=== PATIENT | female | born 1945 | race Caucasian/White ===

== ENCOUNTER 2019-02-13 15:38 | Emergency (ER) | payer MEDICARE, OTHER ==
--- NOTE | 2019-02-13 15:46 | ER Document Report ---
ED Medical Screen (RME) - General Stated Complaint: JAW PAIN/RIGHT ARM PAIN Time Seen by Provider: 02/13/19 15:40 Mode of Arrival: Ambulatory Information source: Patient - HPI Patient complains to provider of: JAW PAIN, RIGHT ARM PAIN Notes: 02/13/19 15:41 RIGHT ARM PAIN FOR MONTHS. LEFT JAW PAIN SINCE YESTERDAY. NO CP/SOB. NO N/T, NO WEAKNESS. NO FEVER. EXAM: TENDERNESS TO PALPATION OF THE LEFT JAW AND PAIN WITH OPENING. NO DISTRESS. PLAN: EKG 02/13/19 16:13 An initial examination was made on the patient as part of the triage process, and it was determined a more comprehensive evaluation was necessary. Initial labs were ordered and patient was transferred to another provider in the ED who assumed care and finished evaluation and plan. Physical Exam - Vital signs Vitals: Temp Pulse Resp BP Pulse Ox 98.1 F 64 14 135/74 H 99 02/13/19 16:00 02/13/19 16:00 02/13/19 16:00 02/13/19 16:00 02/13/19 16:00 Course - Vital Signs Vital signs: Temp Pulse Resp BP Pulse Ox 98.1 F 64 14 135/74 H 99 02/13/19 16:00 02/13/19 16:00 02/13/19 16:00 02/13/19 16:00 02/13/19 16:00
--- NOTE | 2019-02-13 16:36 | ER Document Report ---
ED General - General Chief Complaint: Jaw Pain Stated Complaint: JAW PAIN/RIGHT ARM PAIN Time Seen by Provider: 02/13/19 15:40 Mode of Arrival: Ambulatory TRAVEL OUTSIDE OF THE [place] IN LAST 30 DAYS: No - HPI Patient complains to provider of: Left jaw pain, right arm pain Onset: Other - Started yesterday Onset/Duration: Sudden Quality of pain: Sharp Severity: Mild Pain Level: 1 Associated symptoms: None Exacerbated by: Denies Relieved by: Denies Similar symptoms previously: No Recently seen / treated by doctor: No Notes: Patient is a very healthy 73-year-old female coming in today for chief complaint left-sided jaw pain and right arm pain. Patient bit down on a breakfast biscuit yesterday and felt a sharp pain in her left jaw. She told some family members that she had that pain in her jaw and also was having pain in her right arm and they told her that they were concerned about her heart and told her to get it checked out. Her primary care doctor was unable to get around but told her to come over here right away. Patient does not have any chest pain or shortness of breath. Her jaw pain does seem to have come about from biting down on something. The right arm pain apparently has been going on for weeks to months and has been evaluated by doctors in the past. Patient rel ates a shooting pain down her arm and hypersensitivity in her pinky finger. She has no redness swelling or history of trauma to the arm. She has full range of motion. Patient does not have hypertension, cholesterol issues, diabetes, recent smoking history, or family history for heart disease. - Related Data Allergies/Adverse Reactions: levofloxacin [From Levaquin] Allergy (Verified 02/13/19 16:36) Past Medical History - General Information source: Patient - Social History Smoking Status: Former Smoker Family History: Reviewed & Not Pertinent Review of Systems - Review of Systems Notes: Constitutional: No fevers. No chills. EENT: No eye redness. No eye pain. No ear pain. No sore throat. Positive left jaw pain Cardiovascular: No chest pain. No palpitations. Respiratory: No cough. No shortness of breath. No respiratory distress. Gastrointestinal: No abdominal pain. No nausea, vomiting, or diarrhea. Genitourinary: Atraumatic. No lesions. No pain. No discharge. Musculoskeletal: Atraumatic. No swelling. No deformities. Positive chronic right arm pain Skin: No rash or lesions. Lymphatic: No swollen lymph nodes. Neurologic: No headache. No syncope. Psychiatric: No suicidal or homicidal ideation. Physical Exam - Vital signs Vitals: Temp Pulse Resp BP Pulse Ox 98.1 F 64 14 135/74 H 99 02/13/19 16:00 02/13/19 16:00 02/13/19 16:00 02/13/19 16:00 02/13/19 16:00 - Notes Notes: General: Well-developed, well-nourished. In no acute distress. Non-toxic appearing. Cardiac: Well-perfused. Regular rate and rhythm. No murmurs, rubs, or gallops. Pulmonary: No respiratory distress. No cyanosis. Bilateral lung rust are clear to auscultation. Abdominal: Non-distended. Non-rigid. Bowels sounds are present in all four quadrants. No guarding or rebound. HEENT: Head is atraumatic. Conjunctivae not reddened. No tearing. PERRL. EOMI. Orbits atraumatic. No periorbital swelling or erythema. Oropharynx is without erythema, swelling, or exudates. Neck: Supple. No adenopathy. No meningismus. Dermatologic: Warm with good turgor. No rash. Atraumatic. Chest: Atraumatic. No chest wall tenderness to palpation. Musculoskeletal: Moves all extremities well. No range of motion deficits. no muscular or joint tenderness. No paraspinal muscle tenderness. no midline spinal tenderness or step-off. Genitourinary: Examination deferred Neurologic: No gross neurologic deficits. Psychiatric: Normal mood. Course - Re-evaluation Re-evalutation: 02/13/19 16:33 HEART SCORE 2. Patient has no risk factors nor physical findings for PE. Most likely this is to isolated things. 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 The left jaw does not show any signs of pathology except may be some TMJ this develop. I will get baseline troponin and a chest x-ray. EKG is Jus been done and normal. I have very very low suspicion for cardiac etiology. 02/13/19 17:48 As expected negative troponin and negative chest x-ray. I will have the patient treat the pain in her jaw symptomatically with Tylenol. She can follow-up with a dentist to get that checked. - Vital Signs Vital signs: Temp Pulse Resp BP Pulse Ox 98.1 F 64 14 135/74 H 99 02/13/19 16:00 02/13/19 16:00 02/13/19 16:00 02/13/19 16:00 02/13/19 16:00 - EKG Interpretation by Me EKG shows normal: Sinus rhythm, [place], Intervals, QRS Complexes, ST-T Waves Discharge - Discharge Clinical Impression: Chronic pain of right upper extremity Sprain of jaw, left side, initial encounter Qualifiers: Encounter type: initial encounter Qualified Code(s): S03.42XA - Sprain of jaw, left side, initial encounter Condition: Good Disposition: HOME, SELF-CARE Instructions: Temporomandibular Joint Syndrome ([facility]) Additional Instructions: Treat the pain in your jaw with Tylenol. You can follow-up with your dentist if the pain persists. You can also see your doctor or neurologist to investigate the chronic pain in the right arm. Your lab work and everything here is not suggestive of a cardiac problem for your pain. If you start to have issues with chest pain or want to have further workup for your heart, you can see your primary care doctor and be referred to cardiology. Referrals: PRIMARY CARE DOCTOR, YOUR [Other] - Follow up as needed
--- NOTE | 2019-02-13 17:04 | RADIOLOGY REPORT (SQ) ---
EXAM DESCRIPTION: CHEST SINGLE VIEW COMPLETED DATE/TIME: 02/13/2019 4:55 pm REASON FOR STUDY: jaw pain, right arm pain COMPARISON: None. EXAM PARAMETERS: NUMBER OF VIEWS: One view. TECHNIQUE: Single frontal radiographic view of the chest acquired. RADIATION DOSE: NA LIMITATIONS: None. FINDINGS: LUNGS AND PLEURA: No opacities, masses or pneumothorax. No pleural effusion. Likely emphy sematous change. MEDIASTINUM AND HILAR STRUCTURES: No masses. Contour normal. HEART AND VASCULAR STRUCTURES: Heart normal in size. Normal vasculature. BONES: No acute findings. HARDWARE: None in the chest. OTHER: No other significant finding. IMPRESSION: No evidence of acute cardiopulmonary process. TECHNICAL DOCUMENTATION: JOB ID: [id number] [employer]- All Rights Reserved Reading location - IP/workstation name: [email or web address]
[2019-02-13 17:58] VITALS: BP 131/89
--- NOTE | 2019-02-13 20:03 | EKG REPORT ---
SEVERITY:- ABNORMAL ECG - SINUS RHYTHM MULTIPLE ATRIAL PREMATURE COMPLEXES BORDERLINE T ABNORMALITIES, ANT-LAT LEADS : Confirmed by: Iveth Ferrari MD 13-Feb-2019 20:02:28
== END 2019-02-13 17:58 | disposition home or self-care (01) ==
LOC: ER 15:38
DX: S03.42XA Sprain of jaw, left side, initial encounter (principal); R68.84 Jaw pain; M79.601 Pain in right arm; G89.29 Other chronic pain; X58.XXXA Exposure to other specified factors, initial encounter; Z87.891 Personal history of nicotine dependence
CPT/HCPCS: 36415; 71045; 84484; 93005; 93010; 99284

== ENCOUNTER 2019-03-09 01:17 | Emergency (ER) | payer MEDICARE, OTHER ==
--- NOTE | 2019-03-09 04:54 | ER Document Report ---
ED GI/ - General Chief Complaint: Urinary Frequency Stated Complaint: URINARY PROBLEM Time Seen by Provider: 03/09/19 04:44 Primary Care Provider: LUANN WEISS MD [Primary Care Provider] - Follow up as needed Notes: Patient is a 73-year-old female that comes to the emergency department for chief complaint of frequency of urination, burning with urination. Symptoms started tonight. She took Azo prior to arrival. She denies abdominal pain, vomiting, flank pain, fever/chills. She states she has had bladder infections in the past and this feels the same. Past medical history includes hysterectomy, orthopedic surgery, she denies medical history otherwise. She lives at home, drove herself here. TRAVEL OUTSIDE OF THE [place] IN LAST 30 DAYS: No - Related Data Allergies/Adverse Reactions: levofloxacin [From Levaquin] Allergy (Verified 02/13/19 16:36) Past Medical History - General Information source: Patient - Social History Smoking Status: Former Smoker Frequency of alcohol use: None Drug Abuse: None Lives with: Family Family History: Reviewed & Not Pertinent Patient has suicidal ideation: No Patient has homicidal ideation: No Renal/ Medical History: Denies: Hx Peritoneal Dialysis Past Surgical History: Reports: Hx Gynecologic Surgery, Hx Hysterectomy, Hx Orthopedic Surgery - Lt wrist; Lt knee - Immunizations Immunizations up to date: Yes Hx Diphtheria, Pertussis, Tetanus Vaccination: Yes Review of Systems - Review of Systems Constitutional: No symptoms reported EENT: No symptoms reported Cardiovascular: No symptoms reported Respiratory: No symptoms reported Gastrointestinal: No symptoms reported Genitourinary: See HPI Female Genitourinary: No symptoms reported Musculoskeletal: No symptoms reported Skin: No symptoms reported Hematologic/Lymphatic: No symptoms reported Neurological/Psychological: No symptoms reported Physical Exam - Vital signs Vitals: Temp Pulse Resp BP Pulse Ox 97.6 F 50 L 17 138/62 H 97 03/09/19 02:25 03/09/19 02:25 03/09/19 02:25 03/09/19 02:25 03/09/19 02:25 - Notes Notes: GENERAL: Alert, interacts well. No acute distress. HEAD: Normocephalic, atraumatic. EYES: Pupils equal, round, and reactive to light. Extraocular movements intact. ENT: Oral mucosa moist, tongue midline. Oropharynx unremarkable. Airway patent. NECK: Full range of motion. Supple. Trachea midline. LUNGS: Clear to auscultation bilaterally, no wheezes, rales, or rhonchi. No respiratory distress. HEART: Bradycardia but normal rhythm. No murmur ABDOMEN: Soft, non-tender. Non-distended. Bowel sounds present in all 4 quadrants. GENITOURINARY: Deferred EXTREMITIES: Moves all 4 extremities spontaneously. No edema, normal radial and dorsalis pedis pulses bilaterally. No cyanosis. BACK: no cervical, thoracic, lumbar midline tenderness. No saddle anesthesia, normal distal neurovascular exam. NEUROLOGICAL: Alert and oriented x3. Normal speech. . PSYCH: Normal affect, normal mood. SKIN: Warm, dry, normal turgor. No rashes or lesions noted. Course - Re-evaluation Re-evalutation: Patient is smiling and well-appearing. Soft benign abdomen. No flank pain. No fever. Unremarkable vital signs except for bradycardia. I asked patient about this, patient states her typical heart rate is in the 40s and 50s. She states this has been confirmed many times. Patient did provide a urine, this test suggest infection, placing on Keflex. She has no other complaints other than dysuria. I discussed this with patient, she will be started on antibiotics, she declines further evaluation at this time, I feel this is appropriate based on her benign presentation, this appears to be uncomplicated cystitis. Discussed treatment, expectations, follow-up. Patient requests urology referral, this was provided. Patient states satisfaction agreement with plan. - Vital Signs Vital signs: Temp Pulse Resp BP Pulse Ox 97.7 F 47 L 16 119/60 97 03/09/19 05:40 03/09/19 05:40 03/09/19 05:40 03/09/19 05:40 03/09/19 05:40 - Laboratory Laboratory results interpreted by tx: 03/09/19 04:35 Ur Leukocyte Esterase MODERATE H Discharge - Discharge Clinical Impression: Dysuria Urinary tract infection Qualifiers: Urinary tract infection type: site unspecified Hematuria presence: without hematuria Qualified Code(s): N39.0 - Urinary tract infection, site not specified Condition: Stable Disposition: HOME, SELF-CARE Additional Instructions: Your evaluation is consistent with a urinary tract infection. Take antibiotics as prescribed to completion. Follow-up with primary care and optionally with the urology referral listed below. Return if you worsen including abdominal pain, fever/chills, nausea/vomiting, or any other concerning symptoms. [facility] [address] [address] [facility] [place] [id number] Lizabeth Daniels MD Doctor in [address], [place] Address: [address] [place], [place] [address] [address] [place] [address] Prescriptions: Cephalexin Monohydrate [Keflex 500 mg Capsule] 500 mg PO BID #14 capsule Referrals: LUANN WEISS MD [Primary Care Provider] - Follow up as needed
[2019-03-09 05:07] LABS: APPEARANCE,URINE CLEAR; BILIRUBIN,URINE NEGATIVE (NEGATIVE); COLOR,URINE AMBER; GLUCOSE, URINE NEGATIVE (NEGATIVE); KETONES,URINE NEGATIVE (NEGATIVE); LEUKOCYTE ESTERASE,URINE MODERATE (NEGATIVE); NITRITE,URINE NEGATIVE (NEGATIVE); PROTEIN,URINE NEGATIVE (NEGATIVE); URINE SPECIFIC GRAVITY 1.004; UROBILINOGEN,URINE NEGATIVE mg/dL (<2.0)
[2019-03-09] MEDS ORDERED: CEPHALEXIN 500 MG CAPSULE PO ONE (05:34)
[2019-03-09 05:43] VITALS: BP 119/60
== END 2019-03-09 05:49 | disposition home or self-care (01) ==
LOC: ER 01:17
DX: N39.0 Urinary tract infection, site not specified (principal); R00.1 Bradycardia, unspecified; Z87.891 Personal history of nicotine dependence; Z88.1 Allergy status to other antibiotic agents
CPT/HCPCS: 99283; 87086; 87088; 81001; 87186; A9270

== ENCOUNTER 2019-09-26 09:49 | Emergency (ER) | payer MEDICARE, OTHER ==
--- NOTE | 2019-09-26 10:18 | RADIOLOGY REPORT (SQ) ---
EXAM DESCRIPTION: CT HEAD WITHOUT COMPLETED DATE/TIME: 09/26/2019 10:03 am REASON FOR STUDY: bed 19 r/o stroke COMPARISON: None. TECHNIQUE: Axial images acquired through the brain without intravenous contrast. Images reviewed wi th bone, brain and subdural windows. Additional sagittal and coronal reconstructions were generated. Images stored on PACS. All CT scanners at this facility use dose modulation, iterative reconstruction, and/or weight based d osing when appropriate to reduce radiation dose to as low as reasonably achievable (ALARA). [facility]: Dose Right [facility]: CareDose [facility]: Dose Right [facility]: Teradose 4D [facility]: [employer] RADIATION DOSE: CT Rad equipment meets quality standard of care and radiation dose reduction techniq ues were employed. CTDIvol: 53.2 mGy. DLP: 1044 mGy-cm. mGy. LIMITATIONS: None. FINDINGS: VENTRICLES: Appropriate for patient age CEREBRUM: No masses. No hemorrhage. No midline shift. Areas of low density in the white matter mos t likely due to chronic micro-vascular ischemic change. No evidence for acute large vascular territo ry infarction. CEREBELLUM: No masses. No hemorrhage. No alteration of density. No evidence for acute infarction. EXTRAAXIAL SPACES: Mild age-related involutional change. No fluid collections. No masses. ORBITS AND GLOBE: No intra- or extraconal masses. Normal contour of globe without masses. CALVARIUM: No fracture. PARANASAL SINUSES: No fluid or mucosal thickening. SOFT TISSUES: No mass or hematoma. OTHER: No other significant finding. IMPRESSION: 1. No evidence of intracranial hemorrhage or acute large vascular territory infarct. I f high clinical concern for acute ischemic event consider MRI. 2. Mild chronic changes of atrophy and microvascular ischemia. EVIDENCE OF ACUTE STROKE: NO. Pertinent positive or negative findings of the imaging study reported as a CRITICAL EXAM to SALONI ALAS MD at10:11 on 09/26/2019. Category of Critical Exam: Negative code stroke. TECHNICAL DOCUMENTATION: JOB ID: [id number] Quality ID # [id number]: Final reports with documentation of one or more dose reduction techniques (e.g., Au tomated exposure control, adjustment of the mA and/or kV according to patient size, use of iterative reconstruction technique) 2010 [employer]- All Rights Reserved Reading location - IP/workstation name: [email or web address]
[2019-09-26 10:24] LABS: ABSOLUTE MONOCYTES (AUTO) 0.4 10^3/uL (0.1-1.4); ABSOLUTE NEUT (AUTO) 4.4 10^3/uL (1.7-8.2); BASOPHILS % (AUTO) 0.5 % (0-2); EOSINOPHILS % (AUTO) 0.6 % (0-6); HEMATOCRIT 40.8 % (36.0-47.0); HEMOGLOBIN 14.1 g/dL (12.0-15.5); LYMPHOCYTES % (AUTO) 17.7 % (13-45); MEAN CORPUSCULAR HEMOGLOBIN 31.7 pg (27.0-33.4); MEAN CORPUSCULAR HGB CONC 34.5 g/dL (32.0-36.0); MEAN CORPUSCULAR VOLUME 92 fl (80-97); PLATELET COUNT 217 10^3/uL (150-450); RED BLOOD COUNT 4.45 10^6/uL (3.72-5.28); RED CELL DISTRIBUTION WIDTH 13.3 % (11.5-14.0); SEGMENTED NEUTROPHILS % (AUTO) 74.2 % (42-78); TOTAL CELLS COUNTED % (AUTO) 100 %; WHITE BLOOD COUNT 5.9 10^3/uL (4.0-10.5)
[2019-09-26 10:28] LABS: INTERNATIONAL RATION (INR) 1.01
[2019-09-26 10:29] LABS: PARTIAL THROMBOPLASTIN TIME 29.7 SEC (23.5-35.8)
--- NOTE | 2019-09-26 10:32 | ER Document Report ---
ED Neuro Symptoms/Deficit - General Chief Complaint: Weakness Stated Complaint: WEAKNESS Time Seen by Provider: 09/26/19 09:57 Notes: 73-year-old female presents to the emergency department concern of strokelike symptoms. The patient was just discharged from [facility] with what was thought to be a stroke. Patient states she got home yesterday. This morning she went to wake up and she had a headache and her neck felt heavy. She stated she thought this was similar to when she had her strokelike symptoms before she denied any facial numbness or tingling denies extremity numbness tingling or weakness. Denies any problems talking or forming words. States the complaint is pain and heaviness of the neck. She denies any falls or trauma. The patient stated that they did multiple CAT scans and MRIs at [facility]. Patient otherwise is doing well. TRAVEL OUTSIDE OF THE [place] IN LAST 30 DAYS: No - Related Data Allergies/Adverse Reactions: levofloxacin [From Levaquin] Allergy (Verified 09/26/19 10:15) Home Medications: ASA Past Medical History - Social History Smoking Status: Never Smoker Family History: Reviewed & Not Pertinent Patient has suicidal ideation: No Patient has homicidal ideation: No Renal/ Medical History: Denies: Hx Peritoneal Dialysis Past Surgical History: Reports: Hx Gynecologic Surgery, Hx Hysterectomy, Hx Orthopedic Surgery - Lt wrist; Lt knee - Immunizations Immunizations up to date: Yes Hx Diphtheria, Pertussis, Tetanus Vaccination: Yes Review of Systems - Review of Systems Constitutional: denies: Chills, Fever Cardiovascular: denies: Chest pain, Edema Respiratory: denies: Cough, Hurts to breathe, Short of breath Gastrointestinal: denies: Abdominal pain, Diarrhea, Nausea, Vomiting Neurological/Psychological: Headaches. denies: Sensory change, Speech impairment, Numbness, Tingling -: Yes All other systems reviewed and negative Physical Exam - Vital signs Vitals: Temp Pulse Resp BP Pulse Ox 97.8 F 63 16 121/62 100 09/26/19 10:07 09/26/19 10:07 09/26/19 10:07 09/26/19 10:07 09/26/19 10:07 - Notes Notes: GENERAL_APPEARANCE: well_nourished, alert, cooperative, no_acute_distress, no_obvious_discomfort. VITALS: reviewed, see vital signs table. HEAD: no_swelling on the head. EYES: PERRL, EOMI, conjunctiva_clear. NOSE: no_nasal_discharge. MOUTH: (-)decreased moisture. THROAT: no_tonsilar_inflammation, no_airway_obstruction. no_lymphadenopathy NECK: supple, patient states there is vague discomfort from the occiput down to about mid neck. No specific point tenderness, (-)thyromegaly. BACK: no_back_tenderness. CHEST_WALL: no_chest_tenderness. LUNGS: no_wheezing, no_rales, no_rhonchi, (-)accessory muscle use, good air exchange bilateral. HEART: normal_rate, normal_rhythm, normal_S1, normal_S2, (-)S3, (-)S4, no_murmur, no_rub. ABDOMEN: normal_BS, soft, no_abd_tenderness, (-)guarding, (-)rebound, no_organomegaly, no_abd_masses. EXTREMITIES: strength 5/5 in all_extremities, good pulses in all_extremities, no_swelling\\tenderness in the extremities, no_edema. SKIN: warm, dry, good_color, no_rash. MENTAL_STATUS: speech_clear, oriented_X_3, normal_affect, responds_appropriately to questions. NEURO: Neg Motor or Sensory Deficits on exam, CN 2-12 intact, DTR 2+ symmetric x 4, No cerbellar signs Course - Re-evaluation Re-evalutation: 09/26/19 10:29 Patient arrives with concerns of stroke. Patient just got out of the hospital for stroke and states her symptoms were similar however the patient's stroke s gabbi is 0 here today. She has no facial numbness tingling or weakness. No extremity numbness tingling weakness. No problems with talking or forming words. She has no dyskinesia or signs of cerebellar dysfunction. This puts her NIH stroke score is 0. We did get a stroke work-up will try to get the records from [facility] to further evaluate. Seems to be more a headache and neck pain kind of complaint. Patient is not a candidate for TPA since stroke scale was 0 09/26/19 16:21 Patient is completely symptom-free stroke scale was 0. She does complains of just a very mild headache and a heaviness to the back of her head. Was able to get the records from [facility]. The patient had negative CTs negative CTAs. 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 Again reevaluating the patient the patient has a stroke score of 0. I spoke with them. She is got out of the hospital yesterday. This may have been a mild transient event. However it is completely resolved she is already on antiplatelet therapy. I spoke with her about the risks and benefits of staying for observation. Again I discussed all the hospital yesterday and would rather go home. We spoke about the possibility of having further strokelike damage spoke about the importance of complying with blood pressure and antiplatelet medications. Advised her to return to the ER if anything worsens whatsoever however she is completely symptom-free now. - Vital Signs Vital signs: Temp Pulse Resp BP Pulse Ox 97.8 F 63 16 121/62 100 09/26/19 10:07 09/26/19 10:07 09/26/19 10:07 09/26/19 10:07 09/26/19 10:11 - Laboratory Result Diagrams: 09/26/19 10:14 09/26/19 10:14 - Diagnostic Test Radiology reviewed: Reports reviewed Radiology results interpreted by me: 09/26/19 16:21 Chest X-Ray 09/26/19 09:50 IMPRESSION: NO ACUTE RADIOGRAPHIC FINDING IN THE CHEST. Head CT 09/26/19 09:50 IMPRESSION: 1. No evidence of intracranial hemorrhage or acute large vascular territory infarct. If high clinical concern for acute ischemic event consider MRI. 2. Mild chronic changes of atrophy and microvascular ischemia. EVIDENCE OF ACUTE STROKE: NO. Pertinent positive or negative findings of the imaging study reported as a CRITICAL EXAM to SALONI ALAS MD at10:11 on 09/26/2019. Category of Critical Exam: Negative code stroke. CT Angio of the head and neck are negative for any obstructions - EKG Interpretation by Me EKG shows normal: Sinus rhythm Rate: Normal Rhythm: NSR ED NIH Stroke Scale - NIH Stroke Scale When completed:: Before Alteplase *: 1. NIH scale should be completed with appropriate accompanying assessment tools. *: 2. The NIH should reflect what the patient is capable of doing and should not be coached by the clinician. 1a. Level of Consciousness: 0=Alert;keenly responsive -: 1=Drowsy -: 2=Obtunded -: 3=Coma/unresponsive or reflex to noxious stimuli. 1a. Responses: 0 1b. Orientation Questions: a. What month is it? -: b. How old are you? -: 0=Answers both questions correctly. -: 1=Answers one question correctly or patient is intubated or has orotracheal trauma. -: 2=Answers neither question correctly. 1b. Responses: 0 1c. Response to commands: a. Open and close eyes? -: b. Drum Builder and release hand? -: Credit is given despite weakness. Demonstration of task is permitted. Sub stitute command if hands cannot be used. -: 0=Performs both tasks correctly -: 1=Performs one task correctly -: 2=Performs neither task correctly 1c. Responses: 0 2. Gaze: Establish eye contact and instruct patient to "Follow my finger" -: 0=Normal -: 1=Partial gaze palsy. Gaze is abnormal in one or both eyes, but where forced deviation or total gaze paresis is not present. -: 2=Forced deviation or total gaze paresis. 2. Responses: 0 3. Visual Colon: Sees fingers in all four quadrants. -: 0=No visual loss. -: 1=Partial hemianopsia. -: 2=Complete hemianopsia. -: 3=Bilateral hemianopsia (including Cortical blindness) 3. Responses: 0 4. Facial Movement: Instruct patient to: -: a. Show me your teeth -: b. Raise your eyebrows -: c. Close your eyes -: d. Smile -: 0=Normal symmetrical movement -: 1=Minor paralysis (flattened nasolabial fold, asymmetry on smiling). -: 2=Partial paralysis (total or near total paralysis of lower face). -: 3=Complete paralysis of upper and lower face 4. Responses: 0 5. Motor functions (left arm): Alternate sides and extend each arm with palms down (90 degrees if sitting or 45 degrees for supine). -: 0=No drift;limb holds for full 10 seconds. -: 1=Drift; limb holds but drifts down before full 10 seconds, but does not hit bed. -: 2=Some effort against gravity; limb cannot get to or maintain position. -: 3=No effort against gravity; limb falls. -: 4=No movement. -: UN=Amputation, joint fusion, explain in comments. 5. Responses (left arm): 0 5. Motor Functions (right arm): Alternate sides and extend each arm with palms down (90 degrees if sitting or 45 degrees for supine). -: 0=No drift;limb holds for full 10 seconds. -: 1=Drift; limb holds but drifts down before full 10 seconds, but does not hit bed. -: 2=Some effort against gravity; limb cannot get to or maintain position. -: 3=No effort against gravity; limb falls. -: 4=No movement. -: UN=Amputation, joint fusion, explain in comments. 5. Responses (right arm): 0 6. Motor Functions (left leg): With patient lying supine, alternate sides and extend each leg (30 degrees always while supine). -: 0=No drift, leg holds position for full 5 seconds -: 1=Drift; leg falls before full 5 seconds but does not hit bed. -: 2=Some effort against gravity, leg falls to bed but some effort against gravity. -: 3=No effort against gravity, leg falls to bed immediately. -: 4=No movement. -: UN=Amputation, joint fusion; explain in comments. 6. Responses (left leg): 0 6. Motor Functions (right leg): With patient lying supine, alternate sides and extend each leg (30 degrees always while supine). -: 0=No drift, leg holds position for full 5 seconds -: 1=Drift; leg falls before full 5 seconds but does not hit bed. -: 2=Some effort against gravity, leg falls to bed but some effort against gravity. -: 3=No effort against gravity, leg falls to bed immediately. -: 4=No movement. -: UN=Amputation, joint fusion; explain in comments. 6. Responses (right leg): 0 7. Limb Ataxia: With eyes open instruct patient to: -: a. "Touch your finger to your nose". -: b. "Touch your heel to your leal" -: 0=Absent -: 1=Present in one limb. -: 2=Present in two limbs. -: UN=Amputation or joint fusion; explain in comments. 7. Responses: 0 8. Sensory: Test sensation using pinprick or noxious stimuli. Test as many body parts as possible. -: 0=Normal;no sensory loss -: 1=Mile to moderate sensory loss (patient feels pin prick but is less sharp on affected side). -: 2=Severe or total sensory loss. 8. Responses: 0 9. Best Language: Instruct patient to: -: a. "Describe what you see in this picture." -: b. "Name the items in this picture." -: c. "Read these sentences." -: 0=No aphasia, normal -: 1=Mild to moderate aphasia. -: 2=Severe aphasia -: 3=Mute, global aphasia, no usable speech or auditory comprehension. 9. Responses: 0 10. Articulation, Dysarthia: Instruct patient to: -: "Read these words" or "Repeat these words" -: 0=Normal -: 1=Mild to moderate; patient may slur some words but can be understood without difficulty. -: 2=Severe; patients speech so slurred as to be unintelligible in the absence of dysphasia. -: UN=Intubated or other physical barrier, explain in comments. 10. Responses: 0 11. Extinction or inattention: 0=No abnormality -: 1= Visual, tactile, auditory, spatial, or personal inattention or extinction to bilateral simulation in one or the sensory modalities. -: 2=Profound randi-inattention or randi-inattention to more than one modality; does not recognize own hand. Total Score: 0 Discharge - Discharge Clinical Impression: TIA (transient ischemic attack) Condition: Good Disposition: HOME, SELF-CARE Instructions: Transient Ischemic Attack ([facility]) Additional Instructions: I have reviewed your records from [facility]. You were diagnosed with a small posterior circulation/cerebellar stroke. Please continue taking your aspirin and medicines as prescribed. If you have any other symptoms or anything worsens return to the ER immediately.
[2019-09-26 10:35] LABS: PROTHROMBIN TIME 13.3 SEC (11.4-15.4)
[2019-09-26 10:43] LABS: ALBUMIN 4.1 g/dL (3.5-5.0); ALKALINE PHOSPHATASE 84 U/L (38-126); ANION GAP 12 (5-19); ASPARTATE AMINO TRANSFERASE 26 U/L (14-36); BILIRUBIN,TOTAL 0.5 mg/dL (0.2-1.3); BLOOD UREA NITROGEN 17 mg/dL (7-20); CALCIUM 9.5 mg/dL (8.4-10.2); CARBON DIOXIDE 21 mmol/L (22-30); CHLORIDE 106 mmol/L (98-107); CREATINE KINASE 31 U/L (30-135); GLUCOSE 94 mg/dL (75-110); POTASSIUM 4.3 mmol/L (3.6-5.0); TOTAL PROTEIN 6.7 g/dL (6.3-8.2)
--- NOTE | 2019-09-26 10:51 | RADIOLOGY REPORT (SQ) ---
EXAM DESCRIPTION: CHEST SINGLE VIEW COMPLETED DATE/TIME: 09/26/2019 10:33 am REASON FOR STUDY: bed 19 r/o stroke COMPARISON: 02/13/2019 EXAM PARAMETERS: NUMBER OF VIEWS: One view. TECHNIQUE: Single frontal radiographic view of the chest acquired. RADIATION DOSE: NA LIMITATIONS: None. FINDINGS: LUNGS AND PLEURA: No opacities, masses or pneumothorax. No pleural effusion. MEDIASTINUM AND HILAR STRUCTURES: No masses. Contour normal. HEART AND VASCULAR STRUCTURES: Heart normal in size. Aortic atherosclerosis. BONES: No acute findings. HARDWARE: None in the chest. OTHER: No other significant finding. IMPRESSION: NO ACUTE RADIOGRAPHIC FINDING IN THE CHEST. TECHNICAL DOCUMENTATION: JOB ID: [id number] [employer]- All Rights Reserved Reading location - IP/workstation name: [email or web address]
[2019-09-26 11:07] LABS: CREATINE KINASE MB < 0.22 ng/mL (<4.55); TROPONIN I < 0.012 ng/mL
[2019-09-26] MEDS ORDERED: ACETAMINOPHEN 325 MG TABLET PO ONE (11:43)
[2019-09-26 16:54] VITALS: BP 111/61
--- NOTE | 2019-09-26 17:03 | RADIOLOGY REPORT (SQ) ---
EXAM DESCRIPTION: CTA HEAD; CTA NECK COMPLETED DATE/TIME: 09/26/2019 3:01 pm; 09/26/2019 3:03 pm REASON FOR STUDY: stroke like symptoms COMPARISON: Same day CT TECHNIQUE: Post IV contrast scanning, thin section axial imaging through the brain to evaluate the a rterial structures. Source and MIP images are saved and reviewed on PACS. Advanced 3D imaging as volume-rendering, MIPs, SSD performed? yes All CT scanners at this facility use dose modulation, iterative reconstruction, and/or weight based d osing when appropriate to reduce radiation dose to as low as reasonably achievable (ALARA). [facility]: Dose Right [facility]: CareDose [facility]: Dose Right [facility]: Teradose 4D [facility]: [employer] Systems CONTRAST TYPE AND DOSE: contrast/concentration: Isovue 350.00 mg/ml; Total Contrast Delivered: 70.0 ml; Total Saline Delivered: 75.0 ml RENAL FUNCTION: Creatinine 0.71 LIMITATIONS: None. FINDINGS: CTA NECK: ARCH: Normal 3 vessel aortic arch. Minimal scattered atherosclerosis at the great vessel origin wit hout high-grade stenosis. No aneurysm or dissection. CAROTIDS: Bilateral common carotid artery is are widely patent without high-grade stenosis. Externa l carotid artery is are patent. There is a retropharyngeal course of the bilateral internal carotid arteries. No focal high-grade stenosis, dissection or aneurysm. VERTEBRAL: Visualized vertebral arteries are widely patent without focal high-grade stenosis, dissec tion or aneurysm. Origin not well evaluated secondary to motion artifact. LUNG APICES: No pneumothorax. No acute findings. No suspicious lesions. BONES: No acute bony abnormality mild multilevel degenerative changes greatest at C5-6 and C6-7. No suspicious osseous lesions. SOFT TISSUES: 1.2 cm hypodense left thyroid nodule. No lymphadenopathy. CTA HEAD: [place]: The anterior, middle, posterior cerebral arteries are all patent. No evidence of a neurysm or focal stenosis. POSTERIOR CIRCULATION: The distal vertebral arteries are patent as is the basilar artery. No aneurysm . BRAIN: No gross enhancing lesions as visualized. The superior cerebral hemispheres are not included in the field of view. BONES: Intact as visualized. SINUSES: No fluid or mucosal thickening. OTHER: No other significant finding. IMPRESSION: CTA neck: 1. No evidence of large vessel occlusion, high-grade stenosis or aneurysm. 2. Incidentally noted retropharyngeal course of the bilateral internal carotid arteries. CTA head: 1. No evidence of large vessel occlusion, high-grade stenosis or aneurysm. TECHNICAL DOCUMENTATION: JOB ID: [id number] Quality ID # [id number]: Final reports with documentation of one or more dose reduction techniques (e.g., Au tomated exposure control, adjustment of the mA and/or kV according to patient size, use of iterative reconstruction technique) 2010 [employer]- All Rights Reserved Reading location - IP/workstation name: [email or web address]
--- NOTE | 2019-09-26 17:03 | RADIOLOGY REPORT (SQ) ---
EXAM DESCRIPTION: CTA HEAD; CTA NECK COMPLETED DATE/TIME: 09/26/2019 3:01 pm; 09/26/2019 3:03 pm REASON FOR STUDY: stroke like symptoms COMPARISON: Same day CT TECHNIQUE: Post IV contrast scanning, thin section axial imaging through the brain to evaluate the a rterial structures. Source and MIP images are saved and reviewed on PACS. Advanced 3D imaging as volume-rendering, MIPs, SSD performed? yes All CT scanners at this facility use dose modulation, iterative reconstruction, and/or weight based d osing when appropriate to reduce radiation dose to as low as reasonably achievable (ALARA). [facility]: Dose Right [facility]: CareDose [facility]: Dose Right [facility]: Teradose 4D [facility]: [employer] CONTRAST TYPE AND DOSE: contrast/concentration: Isovue 350.00 mg/ml; Total Contrast Delivered: 70.0 ml; Total Saline Delivered: 75.0 ml RENAL FUNCTION: Creatinine 0.71 LIMITATIONS: None. FINDINGS: CTA NECK: ARCH: Normal 3 vessel aortic arch. Minimal scattered atherosclerosis at the great vessel origin wit hout high-grade stenosis. No aneurysm or dissection. CAROTIDS: Bilateral common carotid artery is are widely patent without high-grade stenosis. Externa l carotid artery is are patent. There is a retropharyngeal course of the bilateral internal carotid arteries. No focal high-grade stenosis, dissection or aneurysm. VERTEBRAL: Visualized vertebral arteries are widely patent without focal high-grade stenosis, dissec tion or aneurysm. Origin not well evaluated secondary to motion artifact. LUNG APICES: No pneumothorax. No acute findings. No suspicious lesions. BONES: No acute bony abnormality mild multilevel degenerative changes greatest at C5-6 and C6-7. No suspicious osseous lesions. SOFT TISSUES: 1.2 cm hypodense left thyroid nodule. No lymphadenopathy. CTA HEAD: [place]: The anterior, middle, posterior cerebral arteries are all patent. No evidence of a neurysm or focal stenosis. POSTERIOR CIRCULATION: The distal vertebral arteries are patent as is the basilar artery. No aneurysm . BRAIN: No gross enhancing lesions as visualized. The superior cerebral hemispheres are not included in the field of view. BONES: Intact as visualized. SINUSES: No fluid or mucosal thickening. OTHER: No other significant finding. IMPRESSION: CTA neck: 1. No evidence of large vessel occlusion, high-grade stenosis or aneurysm. 2. Incidentally noted retropharyngeal course of the bilateral internal carotid arteries. CTA head: 1. No evidence of large vessel occlusion, high-grade stenosis or aneurysm. TECHNICAL DOCUMENTATION: JOB ID: [id number] Quality ID # [id number]: Final reports with documentation of one or more dose reduction techniques (e.g., Au tomated exposure control, adjustment of the mA and/or kV according to patient size, use of iterative reconstruction technique) 2010 [employer]- All Rights Reserved Reading location - IP/workstation name: [email or web address]
--- NOTE | 2019-09-26 18:29 | EKG REPORT ---
SEVERITY:- BORDERLINE ECG - SINUS RHYTHM BORDERLINE T ABNORMALITIES, ANT-LAT LEADS : Confirmed by: Aroldo Cheung 26-Sep-2019 18:28:20
== END 2019-09-26 16:54 | disposition home or self-care (01) ==
LOC: ER 09:49
DX: G45.9 Transient cerebral ischemic attack, unspecified (principal); R53.1 Weakness; Z79.02 Long term (current) use of antithrombotics/antiplatelets; Z90.710 Acquired absence of both cervix and uterus
CPT/HCPCS: 93005; 99284; 36415; 82553; 82550; 85025; 85610; 85730; 80053; 84484; 71045; 70450; 70496; 70498; 93010; A9270

== ENCOUNTER 2019-10-11 06:54 | Emergency (ER) | payer MEDICARE, OTHER ==
[2019-10-11] MEDS ORDERED: KETOROLAC TROMETHAMINE 60 MG/2 ML SDV IM ONE (07:22)
[2019-10-11] MEDS ORDERED: KETOROLAC TROMETHAMINE INJ/PF 30 MG/1 ML SDV IV ONE (07:40)
[2019-10-11 08:09] LABS: ABSOLUTE LYMPHOCYTES (AUTO) 0.8 10^3/uL (0.5-4.7); ABSOLUTE MONOCYTES (AUTO) 0.3 10^3/uL (0.1-1.4); ABSOLUTE NEUT (AUTO) 3.7 10^3/uL (1.7-8.2); BASOPHILS % (AUTO) 0.7 % (0-2); HEMATOCRIT 38.6 % (36.0-47.0); HEMOGLOBIN 13.4 g/dL (12.0-15.5); LYMPHOCYTES % (AUTO) 16.6 % (13-45); MEAN CORPUSCULAR HEMOGLOBIN 32.1 pg (27.0-33.4); MEAN CORPUSCULAR HGB CONC 34.8 g/dL (32.0-36.0); MEAN CORPUSCULAR VOLUME 92 fl (80-97); MONOCYTES % (AUTO) 6.7 % (3-13); PLATELET COUNT 175 10^3/uL (150-450); RED BLOOD COUNT 4.19 10^6/uL (3.72-5.28); RED CELL DISTRIBUTION WIDTH 13.5 % (11.5-14.0); TOTAL CELLS COUNTED % (AUTO) 100 %; WHITE BLOOD COUNT 4.9 10^3/uL (4.0-10.5)
[2019-10-11 08:28] LABS: ALBUMIN 3.9 g/dL (3.5-5.0); ALKALINE PHOSPHATASE 82 U/L (38-126); ANION GAP 9 (5-19); ASPARTATE AMINO TRANSFERASE 23 U/L (14-36); BILIRUBIN,DIRECT 0.1 mg/dL (0.0-0.4); BILIRUBIN,TOTAL 0.5 mg/dL (0.2-1.3); BLOOD UREA NITROGEN 12 mg/dL (7-20); CALCIUM 9.5 mg/dL (8.4-10.2); CARBON DIOXIDE 27 mmol/L (22-30); CHLORIDE 104 mmol/L (98-107); GLUCOSE 92 mg/dL (75-110); POTASSIUM 4.4 mmol/L (3.6-5.0); TOTAL PROTEIN 6.7 g/dL (6.3-8.2)
--- NOTE | 2019-10-11 09:04 | RADIOLOGY REPORT (SQ) ---
EXAM DESCRIPTION: CT SOFT TISSUE NECK WITH COMPLETED DATE/TIME: 10/11/2019 8:50 am REASON FOR STUDY: odynophagia COMPARISON: 09/26/2019 TECHNIQUE: Post IV contrasted scanning from skull base through lung apices with review of bone, soft tissue and lung windows. Reconstructed coronal and sagittal MPR images reviewed. All images stored on PACS. All CT scanners at this facility use dose modulation, iterative reconstruction, and/or weight based d osing when appropriate to reduce radiation dose to as low as reasonably achievable (ALARA). [facility]: Dose Right [facility]: CareDose [facility]: Dose Right [facility]: Teradose 4D [facility]: [employer] CONTRAST TYPE AND DOSE: contrast/concentration: Isovue 350.00 mg/ml; Total Contrast Delivered: 75.0 ml; Total Saline Delivered: 51.4 ml RENAL FUNCTION: GFR > 60. RADIATION DOSE: CT Rad equipment meets quality standard of care and radiation dose reduction techniq ues were employed. CTDIvol: 14.0 mGy. DLP: 437 mGy-cm. . LIMITATIONS: None. FINDINGS: SKULL BASE: Intact. MAJOR SALIVARY GLANDS: No solid or cystic masses. No inflammatory changes. LYMPHADENOPATHY: No adenopathy. MUCOSAL MASSES OR ASYMMETRY: No mucosal masses or asymmetry. LARYNX/CORDS: No abnormal findings. VASCULAR STRUCTURES: The major vessels are patent. Incidental note of retropharyngeal course of the bilateral internal carotid arteries. LUNG APICES: Clear. BONES: Disc degenerative disease of the thoracic spine THYROID: Normal size. No masses. Incidental low-attenuation 1.1 cm nodule of the left lobe of the t hyroid, for which no further characterisation is generally required. PARANASAL SINUSES: Clear. OTHER: No other significant finding. IMPRESSION: No CT findings to explain neck pain in the vicinity of the hyoid. There is no evidence of mass, fluid collection, lymphadenopathy, or other abnormality of the neck. TECHNICAL DOCUMENTATION: JOB ID: [id number] Quality ID # [id number]: Final reports with documentation of one or more dose reduction techniques (e.g., Au tomated exposure control, adjustment of the mA and/or kV according to patient size, use of iterative reconstruction technique) 2010 [employer]- All Rights Reserved Reading location - IP/workstation name: [email or web address]
--- NOTE | 2019-10-11 09:11 | ER Document Report ---
ED General - General Chief Complaint: Headache Stated Complaint: HEAD PAIN Time Seen by Provider: 10/11/19 07:04 Mode of Arrival: Ambulatory Information source: Patient TRAVEL OUTSIDE OF THE [place] IN LAST 30 DAYS: No - HPI Notes: Patient presents complaining of neck pain. She states she is had this pain for 3 to 4 days. It does radiate into her head. It is constant. It seems to be worse when she has movement and better with rest. She states this morning she was concerned because it seemed to be painful with swallowing. She has not had drooling. She has had no vomiting or choking. She denies any changes of speech or vision. The pain has been moderate and intermittent. There is a sharp sensation. - Related Data Allergies/Adverse Reactions: levofloxacin [From Levaquin] Allergy (Verified 09/26/19 10:15) Home Medications: xanax. b 12. lemon balm. asa 81mg Past Medical History - General Information source: Patient - Social History Smoking Status: Never Smoker Chew tobacco use (# tins/day): No Frequency of alcohol use: None Drug Abuse: None Family History: Reviewed & Not Pertinent Patient has suicidal ideation: No Patient has homicidal ideation: No Renal/ Medical History: Denies: Hx Peritoneal Dialysis Past Surgical History: Reports: Hx Gynecologic Surgery, Hx Hysterectomy, Hx Orthopedic Surgery - Lt wrist; Lt knee - Immunizations Immunizations up to date: Yes Hx Diphtheria, Pertussis, Tetanus Vaccination: Yes Review of Systems - Review of Systems Constitutional: denies: Chills, Fever Cardiovascular: denies: Chest pain, Palpitations Respiratory: denies: Cough, Short of breath Gastrointestinal: denies: Abdominal pain -: Yes All other systems reviewed and negative Physical Exam - Vital signs Vitals: Temp Pulse Resp BP Pulse Ox 98.1 F 58 L 16 123/63 98 10/11/19 06:55 10/11/19 06:55 10/11/19 06:55 10/11/19 06:55 10/11/19 06:55 Interpretation: Normal - General General appearance: Appears well, Alert - HEENT Head: Normocephalic, Atraumatic Eyes: Normal Pupils: PERRL Mouth/Lips: Normal Mucous membranes: Moist Pharynx: Normal Neck: Other - Inspection of the neck is unremarkable. Palpation of the neck has some tenderness at the angle of the jaw bilaterally. But there are no masses palpated. I do not appreciate any abnormalities on palpation of the thyroid. - Respiratory Respiratory status: No respiratory distress Chest status: Nontender Breath sounds: Normal Chest palpation: Normal - Cardiovascular Rhythm: Regular Heart sounds: Normal auscultation Murmur: No - Abdominal Inspection: Normal Distension: No distension Bowel sounds: Normal Tenderness: Nontender Organomegaly: No organomegaly - Back Back: Normal, Nontender - Extremities General upper extremity: Normal inspection, Nontender, Normal color, Normal ROM, Normal temperature General lower extremity: Normal inspection, Nontender, Normal color, Normal ROM, Normal temperature, Normal weight bearing. No: Ehsan's sign - Neurological Neuro grossly intact: Yes Cognition: Normal Orientation: AAOx4 Nataly Coma Scale Eye Opening: Spontaneous Nataly Coma Scale Verbal: Oriented Fitzhugh Coma Scale Motor: Obeys Commands Nataly Coma Scale Total: 15 Speech: Normal Motor strength normal: LUE, RUE, LLE, RLE Sensory: Normal - Psychological Associated symptoms: Normal affect, Normal mood - Skin Skin Temperature: Warm Skin Moisture: Dry Skin Color: Normal Course - Re-evaluation Re-evalutation: 10/11/19 09:08 Patient presents with several days of neck pain that is worse with swallowing. Examination of the posterior oropharynx is unremarkable. Palpation of the neck and thyroid is unremarkable. Patient's laboratories are unremarkable. CT scan of the neck also shows no significant abnormalities. I am going to refer the patient to ear nose and throat for further evaluation. - Vital Signs Vital signs: Temp Pulse Resp BP Pulse Ox 98.1 F 58 L 16 123/63 98 10/11/19 06:55 10/11/19 06:55 10/11/19 06:55 10/11/19 06:55 10/11/19 06:55 - Laboratory Result Diagrams: 10/11/19 07:49 10/11/19 07:49 - Diagnostic Test Radiology reviewed: Image reviewed, Reports reviewed Discharge - Discharge Clinical Impression: Odynophagia Condition: Stable Disposition: HOME, SELF-CARE Additional Instructions: Please call an ear nose and throat doctor as soon as possible to arrange follow- up Prescriptions: Tramadol HCl [Ultram] 50 mg PO Q6 PRN 3 Days #10 tablet PRN Reason: Referrals: PRISCILLA YATES DO [ASSOCIATE] - Follow up in 3-5 days
[2019-10-11 09:27] VITALS: BP 117/58
== END 2019-10-11 09:23 | disposition home or self-care (01) ==
LOC: ER 06:54
DX: R13.10 Dysphagia, unspecified (principal); R51 Headache; Z90.710 Acquired absence of both cervix and uterus
CPT/HCPCS: 36415; 85025; 80053; 70491; J1885; 96374; 99284